=== PATIENT | female | born 1955 | race Caucasian/White ===

== ENCOUNTER 2016-04-04 18:06 | Emergency (ER) | payer MEDICAID ==
[2016-04-04] MEDS ORDERED: METHYLPRED SOD SUCC 125 MG/2 ML VIAL ONE (18:54)
[2016-04-04] MEDS ORDERED: DUONEB INH ONE ×2 (19:09)
== END 2016-04-04 21:13 | disposition home or self-care (01) ==
LOC: FASTR 18:06
CPT/HCPCS: 71020; 74020; 80053; 82553; 83690; 83880; 84484; 85025; 85610; 85730; 87804; 93005; 94640; 96372